=== PATIENT | male | born 1950 | race African-American/Black ===

== ENCOUNTER 2018-05-08 06:36 | Inpatient (IN) | payer OTHER ==
[~2018-05-08] VITALS: Ht 175.3 cm; Wt 106.6 kg
--- NOTE | ~2018-05-08 | H ---
[facility] [place] [address] HISTORY AND PHYSICAL Name: ERICH GOMEZ Room #: 423-1 [facility] IN M.R.#: [id number] Admission: 05/08/18 Attend Phys: Rylee Landon MD Discharge: 05/14/18 Date of : 54 Report #: [id number] THIS REPORT FOR: //name// [facility] DATE OF SERVICE: 05/08/2018 CHIEF COMPLAINT: This 68-year-old gentleman has end-stage renal disease and is admitted with massive volume overload to reinitiate dialysis. HISTORY OF PRESENT ILLNESS: This patient we first met in 2008 with advanced diabetic nephropathy with triopathy and initiated dialysis in 2008. [facility], had a renal transplant performed at [facility] in 2011. The patient was followed at until 3 months ago when he was referred back with a failing renal transplant, creatinine of about 5, progressive edema, diarrhea, electrolyte imbalances. We have managed him for the last couple of months. He has become refractory to treatment with massive volume overload despite high doses of diuretics and is now being readmitted for daily dialysis, ultrafiltration and reinitiation of chronic dialysis. CURRENT MEDICATIONS: Include gabapentin 300 mg b.i.d., amlodipine 5 mg daily, aspirin 81 mg daily, atorvastatin 40 mg daily, Prograf 2 mg b.i.d., carvedilol 12.5 mg b.i.d., Flomax 0.4 mg daily, insulin, prednisone 5 mg daily, bicarbonate 650 mg 2 tablets t.i.d., potassium 40 mEq b.i.d., torsemide 60 mg b.i.d., metolazone 10 mg daily. PAST MEDICAL HISTORY: Includes longstanding diabetes with triopathy. He has had laser surgery to his right eye with decreased vision. He has had difficult hypertension, peripheral neuropathy, prior GI bleed. He had coronary bypass in 2017, and he had a right arm fistula created in 04/13/2018. He also has anemia and is treated with Aranesp at . SOCIAL HISTORY: No cigarettes or alcohol. FAMILY HISTORY: Strongly positive for diabetes and end-stage renal disease. REVIEW OF SYSTEMS: GENERAL: He has been feeling poorly. EYES: He has got decreased vision in the right eye. ENT: Hearing okay. No mouth sores or ulcers. ENDOCRINE: Positive for the diabetes. RESPIRATORY: Denies shortness of breath or pleuritic pain. CARDIAC: No chest pain. He had coronary bypass history. [facility] [address] [place] [address] HISTORY AND PHYSICAL Name: ERICH GOMEZ Room #: [address] [place] [address] [place] [facility].#: [id number] Admission: 05/08/18 Attend Phys: Rylee Landon MD Discharge: 05/14/18 Date of : 54 Report #: [id number] GASTROINTESTINAL: He had a lot of diarrhea that is resolved since he has come off mycophenolate. GENITOURINARY: Reasonably good urinary stream. History of enlarged prostate. NEUROLOGIC: He has got peripheral neuropathy. PSYCHIATRIC: No depression or anxiety. PHYSICAL EXAMINATION: GENERAL: This is a somewhat chronically ill-appearing, somewhat swollen gentleman. SKIN: Unremarkable. SKELETAL: Well developed, well nourished, nonobese. HEENT: Extraocular movements are full. Vision decreased in the right eye. Hearing intact. No scleral icterus. Mucous membranes moist. Tongue, buccal mucosa benign. NECK: Supple, no carotid bruits. CHEST: Shows diminished breath sounds in the bases. HEART: Regular. ABDOMEN: Soft and nontender. EXTREMITIES: Show 4+ edema up to his waist. NEUROLOGIC: Shows numbness in the distal lower extremities. LABORATORY DATA: Creatinine is 8. ASSESSMENT: 1. Failing renal transplant. He has failing renal transplant. He has got a fistula, but it is not ready for being used. He will be admitted to [place] because of massive fluid overload. He will need daily treatments for some time to get rid of his excessive fluid and get him down to a good situation. 2. Diabetes mellitus with triopathy. 3. History of coronary bypass. 4. History of difficult hypertension. By: [id number] Evan Nix MD /nt
[~2018-05-08 06:36] MED LIST: ADULT ASPIRIN R81 MG PO; AMLODIPINE-OLM1 EAC1 PO; ATORVASTATIN CA40 MG PO; CARVEDILOL25 MG PO; COREG25 MG PO; DEMADEX20 MG PO; FLOMAX0.4 MG PO; FOLIC ACID 1 MG1 MG PO; LANTUS SUBQ; LOPERAMIDE; METOLAZONE 5 MG5 MG PO; NEURONTIN 300300 M1 PO; NORVASC5 MG PO; POTASSIUM20 PO; PREDNISONE 5 MG5 M1 PO; PROGRAF1 MG PO; SODIUM BICARBO650 M3 PO; VITAMIN D2000 UNIT PO
[2018-05-08 07:30] VITALS: BP 167/92
[2018-05-08 07:45] VITALS: BP 136/54
[2018-05-08 08:52] LABS: MCH 28.6 pg (26.0-34.0)
[2018-05-08 08:53] LABS: HEMATOCRIT 28.2 % (42.0-52.0); MCHC 31.8 g/dL (28.0-37.0); MCV 89.9 fL (80.0-100.0); RBC 3.14 mil/uL (4.50-6.00); RDW 16.8 % (10.5-14.5)
[2018-05-08 08:59] LABS: INR 1.2; PROTIME 12.1 Seconds (9.3-11.4)
[2018-05-08 09:13] LABS: ALBUMIN 2.1 g/dL (3.4-5.0); CREATININE 8.9 mg/dL (0.7-1.3); TOTAL BILIRUBIN 0.3 mg/dL (<0.1-1.0); TOTAL PROTEIN 5.3 g/dL (6.4-8.2)
[2018-05-08 09:20] LABS: CALCIUM 5.9 mg/dL (8.5-10.1); POTASSIUM 2.6 mmol/L (3.5-5.1)
[2018-05-08 16:45] VITALS: BP 155/82
[2018-05-08 19:47] VITALS: BP 173/88
[2018-05-09 04:23] VITALS: BP 166/79
[2018-05-09 06:12] LABS: ALBUMIN 2.1 g/dL (3.4-5.0); CALCIUM 6.6 mg/dL (8.5-10.1); PHOSPHORUS 6.6 mg/dL (2.5-4.9)
[2018-05-09 06:17] LABS: POTASSIUM 2.8 mmol/L (3.5-5.1)
[2018-05-09 07:48] VITALS: BP 178/80
[2018-05-09 07:51] LABS: HEP B SURFACE Ab(ANTI-HBS Non Reactive (()); HEPATITIS B SURFACE AG Negative (Negative)
[2018-05-09 16:23] VITALS: BP 175/85
[2018-05-09 19:57] VITALS: BP 181/84
[2018-05-10 04:51] VITALS: BP 164/77
[2018-05-10 06:54] LABS: % SATURATION 25 % (20-39); IRON 33 ug/dL (65-175); TIBC 132 ug/dL (250-450)
[2018-05-10 14:53] VITALS: BP 164/85
[2018-05-10 19:35] VITALS: BP 172/81
[2018-05-11 04:19] VITALS: BP 163/78
[2018-05-11 07:35] VITALS: BP 197/96
[2018-05-11 20:38] VITALS: BP 181/91
[2018-05-12 04:08] VITALS: BP 156/76
[2018-05-12 17:51] VITALS: BP 165/71
[2018-05-12 20:00] VITALS: BP 167/78
[2018-05-13 05:00] VITALS: BP 173/76
[2018-05-13 15:10] VITALS: BP 183/88
[2018-05-13 21:00] VITALS: BP 149/86
[2018-05-14 05:15] VITALS: BP 179/92
[2018-05-14 05:46] LABS: HEMOGLOBIN 9.5 gm/dL (14.0-18.0); RBC 3.29 mil/uL (4.50-6.00)
[2018-05-14 05:48] LABS: HEMATOCRIT 29.8 % (42.0-52.0); MCH 28.8 pg (26.0-34.0); MCHC 31.7 g/dL (28.0-37.0); MCV 90.8 fL (80.0-100.0); RDW 15.4 % (10.5-14.5); WBC 4.4 thou/uL (4.0-11.0)
[2018-05-14 06:27] LABS: ALBUMIN 2.5 g/dL (3.4-5.0); CALCIUM 8.6 mg/dL (8.5-10.1); CREATININE 4.9 mg/dL (0.7-1.3); PHOSPHORUS 3.5 mg/dL (2.5-4.9); POTASSIUM 3.7 mmol/L (3.5-5.1)
[2018-05-14 07:24] VITALS: BP 177/87
[2018-05-14 13:45] VITALS: BP 177/87
[2018-05-14 16:19] VITALS: BP 177/87
[2018-05-14 16:48] VITALS: BP 177/87
== END 2018-05-14 16:53 | disposition home or self-care (01) | DRG 698 ==
LOC: 4E 06:36
PROVIDERS: Hospitalist; Internal Medicine Nephrology
PROC: 0JH63XZ Insertion of Tunneled Vascular Access Device into Chest Subcutaneous Tissue and Fascia, Percutaneous Approach (ICD-10-PCS; principal; 2018-05-08)
PROC: 02H633Z Insertion of Infusion Device into Right Atrium, Percutaneous Approach (ICD-10-PCS; principal; 2018-05-08)
PROC: 5A1D70Z Performance of Urinary Filtration, Intermittent, Less than 6 Hours Per Day (ICD-10-PCS; principal; 2018-05-08)
PROC: B244YZZ Ultrasonography of Right Heart using Other Contrast (ICD-10-PCS; principal; 2018-05-08)
PROC: 5A1D70Z Performance of Urinary Filtration, Intermittent, Less than 6 Hours Per Day (ICD-10-PCS; 2018-05-09)
PROC: 5A1D70Z Performance of Urinary Filtration, Intermittent, Less than 6 Hours Per Day (ICD-10-PCS; 2018-05-10)
PROC: 5A1D70Z Performance of Urinary Filtration, Intermittent, Less than 6 Hours Per Day (ICD-10-PCS; 2018-05-11)
PROC: 5A1D70Z Performance of Urinary Filtration, Intermittent, Less than 6 Hours Per Day (ICD-10-PCS; 2018-05-14)
DX: T86.11 Kidney transplant rejection (principal); N18.6 End stage renal disease; E43 Unspecified severe protein-calorie malnutrition; I12.0 Hypertensive chronic kidney disease with stage 5 chronic kidney disease or end stage renal disease; E11.22 Type 2 diabetes mellitus with diabetic chronic kidney disease; D64.9 Anemia, unspecified; D69.6 Thrombocytopenia, unspecified; E11.42 Type 2 diabetes mellitus with diabetic polyneuropathy; Z95.1 Presence of aortocoronary bypass graft; Z79.82 Long term (current) use of aspirin; Z79.899 Other long term (current) drug therapy; Z88.6 Allergy status to analgesic agent; Z99.2 Dependence on renal dialysis
CPT/HCPCS: 10783; 32100

== ENCOUNTER 2019-10-14 05:40 | Day surgery (SDC) | payer OTHER ==
[~2019-10-14] VITALS: Ht 175.3 cm; Wt 95.3 kg
--- NOTE | ~2019-10-14 | O ---
[facility] [place] [address] OPERATIVE REPORT Name: ERICH GOMEZ Room #: 150-1 [facility] M..#: [id number] Admission: 10/14/19 Attend Phys: Preeti Quick, Discharge: Date of : 54 Report #: [id number] THIS REPORT FOR: //name// CC: Meseret Quick DATE OF SERVICE: 10/14/2019 PREOPERATIVE DIAGNOSIS: Left ring finger trigger finger. POSTOPERATIVE DIAGNOSIS: Left ring finger trigger finger. PROCEDURE PERFORMED: Left ring finger A1 nicky release. SURGEON: Preeti Quick MD ANESTHESIA: Local MAC anesthesia. ESTIMATED BLOOD LOSS: Minimal. TOURNIQUET TIME: None. COMPLICATIONS: None. CONDITION: Stable. DISPOSITION: Recovery room. INDICATIONS: The patient is a 69-year-old male with the above-mentioned diagnosis. He elects for operative treatment. The risks, benefits, alternatives and complications were discussed including but not limited to infection, damage to vessels or nerves, incomplete relief of his symptoms or worsening of any symptoms. Informed consent was obtained. The correct extremity was identified and labeled by myself after verbal confirmation of the patient as well as visual confirmation and signed informed consent. DESCRIPTION OF PROCEDURE: In the preoperative holding area under sterile conditions, a total of 7 mL of 1% lidocaine with 1:100,000 units of epinephrine buffered with bicarbonate was injected in the proposed incision site. This was done due to the fact that there was an IV placed in the mid forearm on the left and a tourniquet was unable to be used. He tolerated this well. The patient was brought to the operating room and placed on the operating table in supine position. He received preoperative antibiotics. Left upper extremity was sterilely prepped and draped in the usual fashion. Final timeout was taken to verify correct patient, operative procedure, operative site, all concurred. [facility] [address] [place] [address] OPERATIVE REPORT Name: ERICH GOMEZ Room #: 150-1 [facility].#: [id number] Admission: 10/14/19 Attend Phys: Preeti Quick, Discharge: Date of : 54 Report #: [id number] The entire procedure was done with a 3.5 loupe magnification. Next, an oblique incision was made as well as A1 nicky on left ring finger dissection was carried down through subcutaneous tissue with tenotomy scissors. A1 nicky was easily identified and incised. Careful attention placed to avoiding damage to any other structures. The finger was taken through passive and then active range of motion. The tendons glided smoothly. The ____ full tight fist, full extension with no locking or clicking. Wound was thoroughly irrigated. Skin was closed with 4-0 nylon suture. Wound was dressed with Adaptic and sterile gauze. He was placed in a bulky dressing. All fingers were pink and brisk capillary refill at the conclusion of case after deflation of tourniquet. All sponge and needle counts were correct. The patient was transferred to postoperative recovery room in stable condition. By: [id number] Preeti Quick MD /nt
[~2019-10-14 05:40] MED LIST changes: +FERRIC CITRATE210 MG PO; +HUMALOG KW100 UNIT/1 SUBQ; +LIPITOR40 MG PO; +MIDODRINE HCL10 MG PO; +RENAL-VITE TAB0.8 MG PO; +TRESIBA FL100 UNIT/1 SUBQ; +VITAMIN B-121000 MC3 PO
[2019-10-14 07:10] LABS: CALCIUM 9.3 mg/dL (8.5-10.1); CREATININE 1.1 mg/dL (0.7-1.3); POTASSIUM 3.7 mmol/L (3.5-5.1)
[2019-10-14 07:17] LABS: ALBUMIN 4.3 g/dL (3.4-5.0); TOTAL BILIRUBIN 0.5 mg/dL (<0.1-1.0); TOTAL PROTEIN 7.5 g/dL (6.4-8.2)
[2019-10-14 07:29] VITALS: BP 132/66
[2019-10-14 08:17] VITALS: BP 132/66
== END 2019-10-14 08:55 | disposition home or self-care (01) ==
LOC: OR 05:40 → TBA 05:41 → OR 06:59
PROVIDERS: Orthopaedic Surgery Hand Surgery
DX: M65.342 Trigger finger, left ring finger (principal); E11.22 Type 2 diabetes mellitus with diabetic chronic kidney disease; N18.6 End stage renal disease; Z88.8 Allergy status to other drugs, medicaments and biological substances; E78.5 Hyperlipidemia, unspecified; D64.9 Anemia, unspecified; Z98.890 Other specified postprocedural states; Z99.2 Dependence on renal dialysis; Z79.4 Long term (current) use of insulin; Z95.1 Presence of aortocoronary bypass graft; Z79.899 Other long term (current) drug therapy; Z79.82 Long term (current) use of aspirin
CPT/HCPCS: 50010; 50101; 50386; 56526; 57006; 57091; 57178; 62110; 62850; 70005